=== PATIENT | female | born 1955 | race Caucasian/White ===

== ENCOUNTER 2023-09-28 06:20 | Day surgery (SDC) | payer MEDICARE, BC, SELFPAY ==
[2023-09-28 08:35] VITALS: BMI 59.4
[2023-09-28 08:36] VITALS: BP 134/76
[2023-09-28 10:10] VITALS: BP 97/50
[2023-09-28 10:25] VITALS: BP 105/52
== END 2023-09-28 10:41 | disposition home or self-care (01) ==
LOC: GI 06:20
PROVIDERS: ATTENDING PHYSICIAN Internal Medicine Gastroenterology
DX: K57.30 Diverticulosis of large intestine without perforation or abscess without bleeding (principal); K62.1 Rectal polyp; Z86.010 Personal history of colon polyps
CPT/HCPCS: 45385; 45380; 88305

== ENCOUNTER → 2024-08-02 10:11 | Outpatient (REF) | payer MEDICARE, BC, SELFPAY | LOC: RCS 10:11 | PROVIDERS: ATTENDING PHYSICIAN Nuclear Medicine Nuclear Cardiology; FAMILY PHYSICIAN Family Medicine | DX: R06.02 Shortness of breath (principal); Z95.0 Presence of cardiac pacemaker; I49.5 Sick sinus syndrome | CPT/HCPCS: 93306 ==